=== PATIENT | female | born 1960 | race Caucasian/White ===

== ENCOUNTER 2016-12-21 13:04 | Emergency (ER) | payer OTHER ==
[~2016-12-21] VITALS: Ht 175.3 cm; Wt 113.4 kg
[2016-12-21 15:09] VITALS: BP 149/72
--- NOTE | 2016-12-21 15:40 | ED NECK/BACK PAIN COMPLAINT ---
History of Present Illness General Chief Complaint: Neck/Upper Back Pain/Injury Stated Complaint: SIB RADIOLOGY DEPT AFTER MRI YESTERDAY Source: patient, family, old records Exam Limitations: no limitations Vital Signs & Intake/Output Vital Signs & Intake/Output Vital Signs Date Time Temp Pulse Resp B/P B/P Pulse O2 O2 Flow FiO2 Mean Ox Delivery Rate 12/21 1509 98.3 64 18 149/72 99 Room Air 12/21 1318 97.3 60 16 148/73 99 Room Air Allergies Coded Allergies: acetaminophen (From VICODIN) (NAUSEA 12/21/16) codeine (NAUSEA 12/21/16) hydrocodone (From VICODIN) (NAUSEA 12/21/16) oxycodone (From PERCOCET) (NAUSEA 12/21/16) Reconcile Medications Dexamethasone 2 MG TABLET 1 TAB PO TID disk protrusion Famotidine (Pepcid) 20 MG TABLET 1 TAB PO BID gi protection Triage Note: PT TO ED S/P C-SPINE IMAGING YESTERDAY PT WAS TOLD TO COME TO ED BY RADIOLOGIST TODAY FOR ABNORMALITIES TO C4/C5. PT REPORTS NUMBNESS AND TINGLING "LOSS OF USE OF HANDS." HAD MRI TO R/O MS. Triage Nurses Notes Reviewed? yes Onset: 2 months Duration: constant, continues in ED, getting worse Timing: recent history Quality/Severity: moderate, dullness Location: C-spine Radiation: hands Context: no trauma Method of Injury: unknown Loss of Consciousness: no loss of consciousness Modifying Factors: immobilization Associated Symptoms: sensory/motor loss (hands) LMP (ages 10-50): post menopausal : No Patient currently breastfeeds: No HPI: 2 Months prior to admission patient complains of decreasing strength coordination and sensation in both hands. One day prior to admission she had MRI of her neck demonstrating significant cervical spinal stenosis with disc herniation. She denies fever chills nausea vomiting diarrhea abdominal pain chest pain shortness breath headache dysuria rash bleeding change in bowel bladder function. Past History Travel History Traveled to [place] past 21 day No Medical History Any Pertinent Medical History? see below for history Neurological: NONE EENT: NONE Cardiovascular: hypertension Respiratory: NONE Gastrointestinal: NONE Hepatic: NONE Renal: NONE Musculoskeletal: RESTLESS LEG SYNDROME Psychiatric: anxiety, depression Endocrine: NONE Surgical History Surgical History: non-contributory Psychosocial History What is your primary language Bel[place]ian Tobacco Use: Never used Family History Hx Contributory? No Review of Systems Review of Systems Constitutional: Reports: no symptoms. Eyes: Reports: no symptoms. Ears, Nose, Throat, Mouth: Reports: no symptoms. Respiratory: Reports: no symptoms. Cardiovascular: Reports: no symptoms. Gastrointestinal/Abdominal: Reports: no symptoms. Musculoskeletal: Reports: see HPI. Skin: Reports: no symptoms. Neurological/Psychological: Reports: see HPI, numbness, paresthesia, weakness. All Other Systems: Reviewed and Negative Physical Exam Physical Exam General Appearance: well developed/nourished, alert, awake, anxious, mild distress Head: atraumatic, normal appearance Eyes: Bilateral: normal appearance, PERRL, EOMI, normal inspection. Ears, Nose, Throat, Mouth: hearing grossly normal, moist mucous membrane Neck: normal inspection, supple, full range of motion, normal alignment, no midline tenderness Respiratory: normal breath sounds, chest non-tender, no respiratory distress, quiet respiration, lungs clear Cardiovascular: regular rate/rhythm, normal peripheral pulses, norml femoral pulses equa Peripheral Pulses: 4+ carotid (R), 4+ carotid (L) Gastrointestinal: normal bowel sounds, soft, non-tender, no organomegaly Back: normal inspection, normal range of motion, no vertebral tenderness Extremities: non-tender, normal range of motion, no ligament instability Straight Leg Raising: Left: Negative, Pain at ____ degrees. Sensory: Medial Le: L4R, L4L. Top of Foot: 2: L5R, L5L. Sole of Foot: 2: SIR, [place]. Motor: Deficit L4 Right: No Deficit L4 Left: No Deficit L5 Right: No Deficit L5 Left: No Deficit S1 Right: No Deficit S1 Right: No Walk on Heels: 3: L4 Left, L4 Right. DTR: Deficit L4 Left: No Deficit L4 Right: No Deficit S1 Left: No Deficit S1 Right: No Patellar: 3: L4 Right, L4 Left. Achilles: 3: S1 Right, S1 Left. 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 Discussed w/RAD: MRI. Radiology Impression: - At C4-C5 there is a large right paracentral disc protrusion that results in markedly severe central canal stenosis and significant compression of the cervical spinal cord. There is increased signal on T2-weighted imaging within the cervical cord at this level. There is also moderate to severe bilateral foraminal stenosis at this level secondary to uncovertebral joint hypertrophy and hypertrophic facet arthropathy. - At C3-C4 there is a shallow left paracentral disc protrusion that results in mass effect on the cervical spinal cord as well as moderate to severe central canal stenosis. There may be mild increased signal within the cord at this level as well. - At C5-C6 and C6-C7 disc protrusions result in moderate to severe central canal stenosis with mass effect on the cervical spinal cord at these levels. Comments: D/W Dr. Huang Departure Departure Time of Disposition: 1612 Disposition: HOME OR SELF CARE Condition: Stable Clinical Impression Primary Impression: Prolapsed intervertebral disk Qualifiers: Spinal region: mid-cervical Mid-cervical spinal level: unspecified Qualified Code: M50.220 - Other cervical disc displacement, mid-cervical region, unspecified level Secondary Impressions: Cervical stenosis of spinal canal Referrals: ANGEL GAONA,RONA Almanzar (PCP/Family) LUDMILA ETIENNE,MICHAEL Almanzar Call for an appointment on Friday. Departure Forms: Customer Survey General Discharge Information Prescriptions: Current Visit Scripts Dexamethasone 1 TAB PO TID #20 TAB Famotidine (Pepcid) 1 TAB PO BID #20 TAB
[2016-12-21] MEDS ORDERED: PEPCID20 M1 PO (16:17)
[2016-12-21] MEDS ORDERED: DEXAMETHASONE2 M1 PO (16:17)
== END 2016-12-21 16:39 ==
LOC: ERH 13:04
DX: M50.221 Other cervical disc displacement at C4-C5 level (principal); M48.02 Spinal stenosis, cervical region